=== PATIENT | female | born 1995 | race African-American/Black ===

== ENCOUNTER 2020-08-12 20:06 | Emergency (ER) | payer SELFPAY ==
[~2020-08-12] VITALS: Ht 167.6 cm; Wt 59.0 kg
[2020-08-12 22:02] VITALS: BP 112/63
[2020-08-12] MEDS ORDERED: DIPH25TA64 PO (22:24)
[2020-08-12] MEDS ORDERED: METH4TAB2 PO (22:24)
[2020-08-12] MEDS ORDERED: FAMO-63 PO (22:25)
--- NOTE | 2020-08-12 22:25 | PHYS DOC ---
General Adult EDM: Chief Complaint: ALLERGIC REACTION HPI: HPI: Patient is a 24 year old female who presents with patient states she used black hair dye 2 days ago and then began having allergic reaction with itching and a dermatitis type rash on her scalp and around her forehead area where the black hair dye touched. She states she has not taken any medications for this. She states she has been using hydrocortisone cream. She states her mother has the same reaction. Review of Systems: Review of Systems: Constitutional: Denies fever or chills. [] Eyes: Denies change in visual acuity. [] HENT: Denies nasal congestion or sore throat. [] Respiratory: Denies cough or shortness of breath. [] Cardiovascular: Denies chest pain or edema. [] GI: Denies abdominal pain, nausea, vomiting, bloody stools or diarrhea. [] : Denies dysuria. [] Musculoskeletal: Denies back pain or joint pain. [] Integument: Denies rash. +Dermatitis allergic reaction rash to scalp and hairline [] Neurologic: Denies headache, focal weakness or sensory changes. [] Endocrine: Denies polyuria or polydipsia. [] Lymphatic: Denies swollen glands. [] Psychiatric: Denies depression or anxiety. [] Heart Score: Risk Factors: Risk Factors: DM, Current or recent (<one month) smoker, HTN, HLP, family history of CAD, obesity. Risk Scores: Score 0 - 3: 2.5% MACE over next 6 weeks - Discharge Home Score 4 - 6: 20.3% MACE over next 6 weeks - Admit for Clinical Observation Score 7 - 10: 72.7% MACE over next 6 weeks - Early Invasive Strategies Physical Exam: PE: Constitutional: Well developed, well nourished, no acute distress, non-toxic appearance. [] HENT: Normocephalic, atraumatic, bilateral external ears normal, oropharynx moist, no oral exudates, nose normal. [] Eyes: PERRLA, EOMI, conjunctiva normal, no discharge. [] Neck: Normal range of motion, no tenderness, supple, no stridor. [] Cardiovascular:Heart rate regular rhythm, no murmur [] Lungs & Thorax: Bilateral breath sounds clear to auscultation [] Abdomen: Bowel sounds normal, soft, no tenderness, no masses, no pulsatile masses. [] Skin: Warm, dry, no erythema, dermatitis rash to scalp and around the hairline rash. Dermatitis rash behind the ears on the skin. [] Back: No tenderness, no CVA tenderness. [] Extremities: No tenderness, no cyanosis, no clubbing, ROM intact, no edema. [] Neurologic: Alert and oriented X 3, normal motor function, normal sensory function, no focal deficits noted. [] Psychologic: Affect normal, judgement normal, mood normal. [] EKG: EKG: [] Radiology/Procedures: Radiology/Procedures: [] Course & Med Decision Making: Course & Med Decision Making Pertinent Labs and Imaging studies reviewed. (See chart for details) See HPI. Patient has a dermatitis rash to the scalp and around the forehead at the hairline and behind the ears. There is no discharge. It is reddened and irritated. Patient rates her discomfort at an 8 out of 10 states is very itchy and almost a burning throbbing type pain. Patient will be given a Medrol Dosepak, Pepcid, Benadryl to take. She can follow-up with her primary care physician. There is no swelling to the face or mouth. She has no shortness of breath and there is no tongue swelling or rash inside the mouth. The allergic reaction is limited to the scalp and around the hairline. [] Star Disclaimer: Star Disclaimer: This electronic medical record was generated, in whole or in part, using a voice recognition dictation system. Departure Departure Impression: Primary Impression: Allergic dermatitis Disposition: 01 DC HOME SELF CARE/HOMELESS Condition: STABLE Referrals: NO PCP (PCP) Patient Instructions: Contact Dermatitis Additional Instructions: Take medications as prescribed. If needed go to your primary care provider. Can continue using the hydrocortisone aloe cream. Scripts Famotidine (PEPCID) 20 Mg Tablet 20 MG PO BID, #15 TAB Prov: SENA NASCIMENTOA Brittni NEWSPERSON 08/12/20 Diphenhydramine Hcl (BENADRYL ALLERGY) 25 Mg Tablet 1 TAB PO BID for 3 Days, #6 TAB 0 Refills Prov: BAFSENA CONWAYA Brittni NEWSPERSON 08/12/20 Methylprednisolone (MEDROL) 4 Mg Tab.ds.pk 1 PKG PO UD, #1 PKG Prov: BAFUSSENAA Brittni NEWSPERSON 08/12/20 EVANGELISTA NASCIMENTO APRN Aug 12, 2020 22:25
== END 2020-08-12 22:43 | disposition home or self-care (01) ==
LOC: ER 20:06
DX: L23.9 Allergic contact dermatitis, unspecified cause (principal); R21 Rash and other nonspecific skin eruption; L29.9 Pruritus, unspecified
CPT/HCPCS: 99283

== ENCOUNTER 2021-02-21 13:26 | Emergency (ER) | payer MEDICAID ==
[~2021-02-21] VITALS: Ht 170.2 cm; Wt 56.1 kg
[~2021-02-21 13:26] MED LIST: DIPH25TA64 PO; FAMO-63 PO; METH4TAB2 PO
[2021-02-21 14:30] VITALS: BP 106/71
[2021-02-21 14:45] LABS: BILIRUBIN,URINE NEGATIVE (NEG); CLARITY,URINE CLEAR; COLOR,URINE YELLOW; NITRITE,URINE NEGATIVE (NEG); PH,URINE 7.5 (<5.0-8.0); PROTEIN,URINE NEGATIVE (NEG-TRACE); UROBILINOGEN,URINE 0.2 mg/dL (0.2 mg/dL)
[2021-02-21 14:49] LABS: BACTERIA,URINE FEW /HPF (0-FEW); RBC,URINE 0 /HPF (0-2)
[2021-02-21 16:29] LABS: PREG TEST PT QUAL NEGATIVE (NEG)
--- NOTE | 2021-02-21 16:42 | ED.ADGEN ---
Past Medical History Past Medical History: No Pertinent History Past Surgical History: Other Additional Past Surgical Histo: X1 MO AGO Smoking Status: Never Smoker Alcohol Use: None General Adult EDM: Chief Complaint: VOMITING IN HPI: HPI: Patient is a 25 year old AA female who presents emergency department with concerns of being . Patient reports that she had a a month ago. 2 weeks ago she had unprotected intercourse and the next day took ovulation test that was positive. Patient states she has been feeling nauseated and that her breasts have been burning. She states she is concerned that she is again. She denies any abnormal vaginal discharge, vaginal bleeding, dysuria, hematuria, or increased urinary frequency. Patient states that she took 2 tests at home that she believes were positive. She states that if she is indeed this will be her second with 1 previous . She currently denies any pain. Review of Systems: Review of Systems: Complete ROS is negative unless otherwise noted in HPI. Current Medications: Current Medications Medications (Trade) Dose Ordered Sig/Hermes Start Time Stop Time Status Last Admin Dose Admin Ondansetron HCl (Zofran) 4 mg 1X ONCE 02/21/21 17:00 02/21/21 17:01 DC Allergies: Allergies: Allergies Coded Allergies Type Severity Reaction Last Updated Verified No Known Drug Allergies 08/13/20 No Physical Exam: PE: See Above Constitutional: Well developed, well nourished, no acute distress, non-toxic appearance. [] HENT: Normocephalic, atraumatic, bilateral external ears normal, nose normal. [] Eyes: PERRLA, EOMI, conjunctiva normal, no discharge. [] Neck: Normal range of motion, no stridor. [] Cardiovascular:Heart rate regular rhythm Lungs & Thorax: Respirations even and unlabored, no retractions, no respiratory distress Skin: Warm, dry, no erythema, no rash. [] Extremities: No cyanosis, ROM intact, no edema. [] Neurologic: Alert and oriented X 3, no focal deficits noted. [] Psychologic: Affect normal, judgement normal, mood normal. [] Current Patient Data: Labs: Laboratory Tests Test 02/21/21 13:44 02/21/21 13:51 02/21/21 16:11 Urine Collection Type Unknown Urine Color Yellow Urine Clarity Clear Urine pH 7.5 (<5.0-8.0) Urine Specific [place] 1.015 (1.000-1.030) Urine Protein Negative mg/dL (NEG-TRACE) Urine Glucose (UA) Negative mg/dL (NEG) Urine Ketones (Stick) Negative mg/dL (NEG) Urine Blood Negative (NEG) Urine Nitrite Negative (NEG) Urine Bilirubin Negative (NEG) Urine Urobilinogen Dipstick 0.2 mg/dL (0.2 mg/dL) Urine Leukocyte Esterase Negative (NEG) Urine RBC 0 /HPF (0-2) Urine WBC 1-4 /HPF (0-4) Urine Squamous Epithelial Cells Many /LPF Urine Bacteria Few /HPF (0-FEW) POC Urine HCG, Qualitative Hcg negative (Negative) Serum Test, Qualitative Negative (NEG) Vital Signs: Vital Signs Date Time Temp Pulse Resp B/P (MAP) Pulse Ox O2 Delivery O2 Flow Rate FiO2 02/21/21 14:30 98.7 67 16 106/71 (83) 99 Room Air 98.7 EKG: EKG: [] Heart Score: C/O Chest Pain: No Radiology/Procedures: Radiology/Procedures: [] Course & Med Decision Making: Course & Med Decision Making Pertinent Labs and Imaging studies reviewed. (See chart for details) Patient is a 25-year-old female who presented to the emergency department with complaints of concerns of and nausea. Urine and blood testing were negative. I advised the patient of these negative results. Zofran was ordered for the patient. She declined to take the medication. I advised patient to follow-up with her primary care doctor or Dr. Norton to discuss control options. Patient was upset with the test results from the ER, she stated that both of her at home tests this morning were positive. The patient did bring the test with her I reviewed the tests myself and determined that both of the tests were actually negative. Patient disagreed with my interpretation of the results, stated I did not know what I was doing, and left the ER Dragon Disclaimer: Star Disclaimer: This electronic medical record was generated, in whole or in part, using a voice recognition dictation system. Departure Departure Impression: Primary Impression: Nausea Additional Impression: Concern about current without diagnosis Disposition: 01 HOME / SELF CARE / HOMELESS Condition: STABLE Referrals: NO PCP (PCP) CLEMENTINE NORTON MD Patient Instructions: Nausea, Adult, [id number] Additional Instructions: Your tests are negative today. [facility] up [facility]. Return to the ER if symptoms wo rsen. Problem Qualifiers MODESTA FINE APRN February 21, 2021 16:41
[2021-02-21] MEDS: ONDANSETRON PF 4 MG/2 ML VIAL. IV ONE (17:00)
== END 2021-02-21 17:19 | disposition home or self-care (01) ==
LOC: ER 13:26
DX: R11.0 Nausea (principal); Z71.1 Person with feared health complaint in whom no diagnosis is made
CPT/HCPCS: 81001; 81025; 84703; 99283